=== PATIENT | female | born 1995 | race Caucasian/White ===

== ENCOUNTER 2019-07-31 18:04 | Emergency (ER) | payer OTHER ==
[2019-07-31] MEDS ORDERED: IBUPROFEN 800 MG TABLET PO STA (18:38)
[2019-07-31] MEDS ORDERED: ACETAMINOPHEN 325 MG TABLET PO STA (18:38)
[2019-07-31] MEDS ORDERED: SODIUM CHLORIDE 0.9% 1,000 ML IV ONE ×3 (19:19→19:24)
--- NOTE | 2019-07-31 19:24 | ED Physician Documentation ---
PD HPI FEVER - Stated complaint Stated Complaint: FEVER/NAUSEA/BARRIOS - Chief complaint Chief Complaint: Fever - History obtained from History obtained from: Patient, Family - History of Present Illness Timing - onset: Yesterday Timing duration: Days (2) Timing details: Gradual onset Pain level max: 8 Pain level now: 8 Associated symptoms: Chills, Sweats. No: Nasal congestion, Rhinorrhea, Sore throat, Dry cough, Chest pain, Dyspnea, Abdominal pain, Urinary symptoms Contributing factors: No: Sick contact, Travel, Immunocompromised, Unimmunized, COPD / asthma - Additional information Additional information: 23-year-old female states that she had a headache yesterday. She states that this was similar to her usual migraine headache. She states that she still has a mild headache today. She states that she took her temperature at home today and it was 104. Nothing makes it better or worse. No vomiting. Currently on her menses. She is not , breast-feeding or trying to become . No dysuria. No cough. Review of Systems Constitutional: reports: Fever GI: denies: Vomiting, Diarrhea : denies: Now EGA Skin: denies: Rash Neurologic: denies: Focal weakness, Numbness, Seizure, Confused PD PAST MEDICAL HISTORY - Past Medical History Past Medical History: No - Past Surgical History Past Surgical History: No - Allergies Allergies/Adverse Reactions: Allergies Allergy/AdvReac Type Severity Reaction Status Date / Time No Known Drug Allergies Allergy Verified 07/31/19 18:21 - Social History Does the pt smoke?: No Smoking Status: Never smoker Does the pt drink ETOH?: No Does the pt have substance abuse?: No - Immunizations Immunizations are current?: No - POLST Patient has POLST: No PD ED PE NORMAL - Vitals Vital signs reviewed: Yes - General General: Alert and oriented X 3, No acute distress, Well developed/nourished - HEENT HEENT: Ears normal, Moist mucous membranes, Pharynx benign - Neck Neck: Supple, no meningeal sign, No adenopathy - Cardiac Cardiac: Other (Tachycardic) - Respiratory Respiratory: No respiratory distress, Clear bilaterally - Abdomen Abdomen: Soft, Non tender, Non distended - Back Back: No CVA TTP, No spinal TTP - Derm Derm: Warm and dry, No rash - Extremities Extremities: No edema - Neuro Neuro: Alert and oriented X 3 - Psych Psych: Normal mood, Normal affect Results - Vitals Vitals: Vital Signs - 24 hr 07/31/19 07/31/19 07/31/19 18:21 18:26 19:07 Temperature 38.3 C H 39.6 C H 37.7 C H Heart Rate 129 H 129 H Respiratory 12 18 Rate Blood Pressure 113/82 H 113/81 H O2 Saturation 96 98 07/31/19 07/31/19 07/31/19 19:17 20:02 20:44 Temperature 38.2 C H Heart Rate 135 H 127 H 116 H Respiratory 18 20 16 Rate Blood Pressure 103/59 L 100/58 L 107/66 O2 Saturation 98 97 97 07/31/19 07/31/19 21:01 21:57 Temperature 37.8 C H 37 C Heart Rate 114 H 99 Respiratory 18 12 Rate Blood Pressure 107/66 111/67 O2 Saturation 96 97 Oxygen O2 Source Room air - Labs Labs: Laboratory Tests 07/31/19 07/31/19 07/31/19 18:30 19:30 19:30 WBC 4.7 L RBC 4.98 Hgb 14.3 Hct 43.0 MCV 86.3 MCH 28.7 MCHC 33.3 RDW 12.4 Plt Count 145 MPV 10.3 Neut # (Auto) 3.3 Lymph # (Auto) 0.7 L Whitley # (Auto) 0.6 Eos # (Auto) 0.0 Baso # (Auto) 0.0 Absolute Nucleated RBC 0.00 Nucleated RBC % 0.0 Sodium 137 Potassium 3.4 L Chloride 103 Carbon Dioxide 25 Anion Gap 9.0 BUN 14 Creatinine 0.7 Estimated GFR (MDRD) 104 Glucose 96 Calcium 8.5 Total Bilirubin 0.5 AST 19 ALT 16 Alkaline Phosphatase 59 Total Protein 7.2 Albumin 4.6 Globulin 2.6 Albumin/Globulin Ratio 1.8 Lipase 25 Urine Color Urine Clarity Urine pH Ur Specific [place] Urine Protein Urine Glucose (UA) Urine Ketones Urine Occult Blood Urine Nitrite Urine Bilirubin Urine Urobilinogen Ur Leukocyte Esterase Urine RBC Urine WBC Ur Squamous Epith Cells Urine Bacteria Ur Microscopic Review Urine Culture Comments Urine HCG, Qual Influenza A (Rapid) Negative Influenza B (Rapid) Negative 07/31/19 21:00 WBC RBC Hgb Hct MCV MCH MCHC RDW Plt Count MPV Neut # (Auto) Lymph # (Auto) [place] # (Auto) Eos # (Auto) Baso # (Auto) Absolute Nucleated RBC Nucleated RBC % Sodium Potassium Chloride Carbon Dioxide Anion Gap BUN Creatinine Estimated GFR (MDRD) Glucose Calcium Total Bilirubin AST ALT Alkaline Phosphatase Total Protein Albumin Globulin Albumin/Globulin Ratio Lipase Urine Color YELLOW Urine Clarity HAZY Urine pH 6.0 Ur Specific [place] 1.010 Urine Protein NEGATIVE Urine Glucose (UA) NEGATIVE Urine Ketones >=80 H Urine Occult Blood MODERATE H Urine Nitrite NEGATIVE Urine Bilirubin NEGATIVE Urine Urobilinogen 0.2 (NORMAL) Ur Leukocyte Esterase NEGATIVE Urine RBC 6-10 H Urine WBC 0-3 Ur Squamous Epith Cells NONE SEEN Urine Bacteria None Seen Ur Microscopic Review INDICATED Urine Culture Comments NOT INDICATED Urine HCG, Qual NEGATIVE Influenza A (Rapid) Influenza B (Rapid) - Rads (name of study) Chest x-ray Radiology: Prelim report reviewed, EMP read contemporaneously, See rad report (No acute disease) PD MEDICAL DECISION MAKING - ED course Complexity details: reviewed results, re-evaluated patient, considered differential, d/w patient ED course: 23-year-old female with what appears to be a flulike illness. Influenza swabs are negative. Chest x-ray is clear. No significant lab abnormalities. Feels better after IV fluids. Tolerating p.o. without difficulty. No evidence of sepsis. We will continue supportive care and follow-up with her doctor. Patient counseled regarding signs and symptoms for which I believe and urgent re-evaluation would be necessary. Patient with good understanding of and agreement to plan and is comfortable going home at this time This document was made in part using voice recognition software. While efforts are made to proofread this document, sound alike and grammatical errors may occur. No evidence of meningitis, encephalitis. Departure - Departure Disposition: 01 Home, Self Care Clinical Impression: Dehydration Fever Qualifiers: Fever type: unspecified Qualified Code(s): R50.9 - Fever, unspecified Condition: Good Instructions: ED Fever Unconf Cause, ED Flu Follow-Up: your,doctor in 1 week if not better [Other] Comments: Drink plenty of fluids and rest. Return if you worsen. Utilize Motrin or Tylenol as needed for fevers. Discharge Date/Time: 07/31/19 22:06
[2019-07-31 19:33] LABS: BASOPHILS % (AUTO) 0.2 %; EOSINOPHILS % (AUTO) 0.2 %; HGB - HEMOGLOBIN 14.3 g/dL (12.0-16.0); LYMPHOCYTES # (AUTO) 0.7 10^3/uL (1.5-3.5); LYMPHOCYTES % (AUTO) 15.8 %; MEAN CORPUSCULAR HEMOGLOBIN 28.7 pg (27.0-31.0); MEAN CORPUSCULAR HGB CONC 33.3 g/dL (32.0-36.0); MEAN CORPUSCULAR VOLUME 86.3 fL (81.0-99.0); MEAN PLATELET VOLUME 10.3 fL (7.9-10.8); MONOCYTES # (AUTO) 0.6 10^3/uL (0.0-1.0); NEUTROPHILS # (AUTO) 3.3 10^3/uL (1.5-6.6); NEUTROPHILS % (AUTO) 70.4 %; PLT - PLATELET COUNT 145 10^3/uL (130-450); RED BLOOD COUNT 4.98 10^6/uL (4.20-5.40); RED CELL DISTRIBUTION WIDTH 12.4 % (12.0-15.0); WHITE BLOOD COUNT 4.7 x10^3/uL (4.8-10.8)
[2019-07-31 19:47] LABS: ALBUMIN 4.6 g/dL (3.2-5.5); ALBUMIN/GLOBULIN RATIO 1.8 (1.0-2.2); BILIRUBIN,TOTAL 0.5 mg/dL (0.2-1.0); CALCIUM 8.5 mg/dL (8.5-10.3); CREATININE 0.7 mg/dL (0.4-1.0); TOTAL PROTEIN 7.2 g/dL (6.7-8.2)
--- NOTE | 2019-07-31 20:28 | XRAY Report ---
Reason: fever Procedure Date: 07/31/2019 Accession Number: [id number] / [id number] Procedure: XR - Chest 1 View X-Ray CPT Code: 60918 Final Report FULL RESULT: EXAM: CHEST RADIOGRAPHY EXAM DATE: 07/31/2019 07:54 PM. CLINICAL HISTORY: Fever. COMPARISON: None. TECHNIQUE: 1 view. FINDINGS: Lungs/Pleura: No dense consolidation. No large effusion or pneumothorax. No pulmonary edema. Mediastinum: Heart and mediastinal contours are unremarkable. Other: None. IMPRESSION: No acute radiographic pulmonary abnormalities. RADIA
[2019-07-31 21:12] LABS: BILIRUBIN,URINE NEGATIVE (NEGATIVE); GLUCOSE, URINE (UA) NEGATIVE (NEGATIVE); KETONES,URINE (UA) >=80 mg/dL (NEGATIVE); LEUKOCYTE ESTERASE, URINE NEGATIVE (NEGATIVE); NITRITE,URINE NEGATIVE (NEGATIVE); OCCULT BLOOD,URINE MODERATE (NEGATIVE); PROTEIN,URINE NEGATIVE (NEGATIVE); UROBILINOGEN,URINE 0.2 (NORMAL) E.U./dL (NORMAL)
[2019-07-31 21:13] LABS: CLARITY,URINE HAZY (CLEAR); HCG UR QUAL NEGATIVE
[2019-07-31 21:25] LABS: BACTERIA,URINE None Seen /HPF (None Seen); SQUAMOUS EPITHELIAL CELL,UR NONE SEEN (<= Few)
[2019-07-31 21:58] VITALS: BP 111/67
== END 2019-07-31 22:06 | disposition home or self-care (01) ==
LOC: ED 18:04
DX: E86.0 Dehydration (principal); R50.9 Fever, unspecified; R51 Headache
CPT/HCPCS: 36415; 71045; 80053; 81001; 81025; 83690; 85025; 87275; 87276; 96360; 96361; 99284; A9270; 81003; 87086

== ENCOUNTER 2023-10-06 01:21 | Inpatient (IN) | payer MEDICAID, OTHER ==
[2023-10-06] MEDS ORDERED: TERBUTALINE 1 MG/ML VIAL SUBQ PRN (01:42)
[2023-10-06] MEDS ORDERED: miSOPROStoL 200 MCG TABLET BC PRN (01:42)
[2023-10-06] MEDS ORDERED: lidocaine 1% 20 ML MDV ID PRN (01:42)
[2023-10-06] MEDS ORDERED: NIFEdipine 10 MG CAPSULE PO PRN (01:42)
[2023-10-06] MEDS ORDERED: CARBOPROST TROMETHAMINE 250 MCG/ML AMP IM PRN (01:42)
[2023-10-06] MEDS ORDERED: hydrALAZINE INJ 20 MG/ML VIAL IVP PRN ×2 (01:42)
[2023-10-06] MEDS ORDERED: METHYLERGONOVINE 0.2 MG/ML VIAL IM PRN (01:42)
[2023-10-06] MEDS ORDERED: miSOPROStoL 200 MCG TABLET PR PRN (01:42)
[2023-10-06] MEDS ORDERED: TRANEXAMIC ACID IN NACL 1,000 MG/100 ML BAG IV PRN (01:42)
[2023-10-06] MEDS ORDERED: SODIUM CHLORIDE FLUSH 0.9% 10 ML SYRINGE IVP PRN (01:42)
[2023-10-06] MEDS ORDERED: LABETALOL 20 MG/4 ML SYRINGE IVP PRN ×3 (01:42)
[2023-10-06] MEDS ORDERED: fentaNYL 100 MCG/2 ML VIAL IVP PRN (01:42)
[2023-10-06] MEDS ORDERED: OXYTOCIN 10 UNIT/ML VIAL IM PRN (01:42)
--- NOTE | 2023-10-06 01:48 | HISTORY & PHYSICAL EXAMINATION ---
Admit History - Visit Reason Visit Reason: Contractions - : 3 Parity: 2 Risk/History: positive: Other (4th degree midline laceration, VAVD) Smoking Status: Never smoker - Other Maternal History Other Maternal History: HPI: 27-year-old -0-0-2 at 39 weeks 3 days gestation presenting in active labor. She gets her care from [facility]. She has been cheyanne for days, but approximately 1130 (2 hours prior to arrival) had a noticeable change in the intensity of her contractions. Does not believe she has had membrane rupture.. She has good movement. No BARRIOS/BV or RUQP. No vaginal bleeding. Denies nausea and vomiting. Denies urinary urgency or dysuria. All other symptoms reviewed and were negative except per HPI. Course Records pending. Per patient, no significant abnormalities this . PMH Denies pertinent medical history PSH [place] teeth extraction OB History -0-0-2 1. Female, 7 pounds, 10-ounces. VAVD, Fourth degree midline laceration 2. Female, 8 pounds 3 ounces. Induction of labor, second-degree midline laceration SH Denies tobacco,, drugs Family History Denies pertinent family history Allergies No known drug allergies Medications vitamins Physical exam: General: Alert, oriented, no acute distress Head: Normal cephalic atraumatic Eyes: PERRLA, extraocular motions intact. Respiratory: Normal rate of respiration. No accessory muscle use, normal respiratory effort. Cardiovascular: Regular rate and rhythm Abdomen: Gravid, nontender, nondistended Extremities: Normal range of motion Neuro: Oriented x3. Normal movements Psych: Appropriate mood and affect. Normal judgment and insight SVE: 6/80/-1 FHT: 125 bpm baseline, moderate variability, accelerations present, no decelerations. [place]: 2 to 4 minutes US: Cephalic Plan 27-year-old -0-0-2 at 39 weeks 3 days gestation admitted for term labor 1. Term labor -Admit to L&D, admit labs, epidural at patient's request, anticipate AROM, anticipate . 2. 39 weeks gestation -Records requested from [facility] 3. History of fourth degree midline laceration -Care with delivery. Counselled on primary and patient declines. Subsequent vaginal delivery with second-degree tear. 4. History of vacuum-assisted vaginal delivery 5.GBS unknown -Per patient negative -GBS positive in previous , so will start GBS prophylaxis. Meds/Allgy - Home Medications Home Medications: Ambulatory Orders Medication Instructions Recorded Confirmed Pnv No.159/Iron/Folic Acid [Eql 1 each PO 10/06/23 Vitamin Tablet] - Allergies Allergies/Adverse Reactions: Allergies Allergy/AdvReac Type Severity Reaction Status Date / Time No Known Drug Allergies Allergy Verified 07/31/19 18:21 Plan for Labor - Plan For Labor I expect patient to be DC'd or transferred within 96 hours.: Yes
[2023-10-06] MEDS ORDERED: ROPIVACAINE 0.2% 200 MG/100 ML BAG EP ONE (01:56)
[2023-10-06] MEDS: LACTATED RINGERS 1,000 ML IV PRN (02:00)
[2023-10-06] MEDS ORDERED: NALBUPHINE 10 MG/ML AMP IVP PRN (02:38)
[2023-10-06] MEDS ORDERED: ROPIVACAINE 0.2% 200 MG/100 ML BAG EP PRN (02:38)
[2023-10-06] MEDS ORDERED: METOCLOPRAMIDE 10 MG/2 ML VIAL IVP PRN (02:38)
[2023-10-06] MEDS ORDERED: NALOXONE 0.4 MG/ML VIAL IVP PRN (02:38)
[2023-10-06] MEDS ORDERED: diphenhydrAMINE INJ 50 MG/ML VIAL IVP PRN (02:38)
[2023-10-06] MEDS ORDERED: ONDANSETRON 4 MG/2 ML VIAL IVP PRN ×2 (02:38→06:25)
[2023-10-06] MEDS ORDERED: ePHEDrine 50 MG/ML VIAL IVP PRN (02:38)
--- NOTE | 2023-10-06 02:38 | ANESTHESIA ---
Pre-Anesthesia VS, & Labs - Diagnosis term labor, IUP - Procedure epidural for Vital Signs: Temp Pulse Resp BP Pulse Ox O2 Flow Rate 37.1 C 99 18 122/58 L 10/06/23 01:36 10/06/23 01:36 10/06/23 01:36 10/06/23 01:36 Height: 5 ft 5 in Weight (kg): 72.575 kg Body Mass Index: 26.6 BMI Classification: Overweight - NPO Last Fluid Intake: t/o day - Is Patient ?: Yes - Lab Results Lab results reviewed: Yes Home Medications and Allergies Home Medications: Ambulatory Orders Pnv No.159/Iron/Folic Acid [Eql Vitamin Tablet] 1 each PO 10/06/23 Active Medications Carboprost Tromethamine (Carboprost Tromethamine 250 Mcg/Ml Amp) 250 mcg IM .ONCE PRN PRN Reason: Hemorrhage Fentanyl (Fentanyl 100 Mcg/2 Ml Vial) 50 mcg IVP Q1H PRN PRN Reason: Severe Pain (score 7-10) Hydralazine HCl (Hydralazine Inj 20 Mg/Ml Vial) 10 mg IVP .ONCE PRN; Protocol PRN Reason: SBP> or= 160 OR DBP> or= 110 Hydralazine HCl (Hydralazine Inj 20 Mg/Ml Vial) 5 - 10 mg IVP Q20M PRN; Protocol PRN Reason: SBP> or= 160 OR DBP> or= 110 Oxytocin/Sodium Chloride (Pitocin/Sodium Chloride) 500 mls @ 999 mls/hr IV PRN PRN; Protocol PRN Reason: POST- HEMORR PREVENTION Tranexamic Acid (Tranexamic 1,000 Mg/100ml-Nacl) 1,000 mg in 100 mls @ 600 mls/hr IV Q30M PRN PRN Reason: EBL >1200mL and within 3hr Lactated Ringer's (Lr) 1,000 mls @ 125 mls/hr IV .Q8H GAVIN Lactated Ringer's (Lr) 1,000 mls @ 999 mls/hr IV PRN PRN PRN Reason: PER PHYSICIAN ORDER Ampicillin Sodium 2 gm/ Sodium (Chloride) 100 mls @ 100 mls/hr IV ONCE ONE Stop: 10/06/23 02:58 Ampicillin Sodium 1 gm/ Sodium (Chloride) 100 mls @ 200 mls/hr IV Q4H GAVIN Labetalol HCl (Labetalol 20 Mg/4 Ml Syringe) 20 mg IVP .ONCE PRN; Protocol PRN Reason: SBP> or= 160 OR DBP> or= 110 Labetalol HCl (Labetalol 20 Mg/4 Ml Syringe) 20 - 80 mg IVP Q10M PRN; Protocol PRN Reason: SBP> or= 160 OR DBP> or= 110 Labetalol HCl (Labetalol 20 Mg/4 Ml Syringe) 20 - 40 mg IVP Q10M PRN; Protocol PRN Reason: SBP> or= 160 OR DBP> or= 110 Lidocaine HCl (Lidocaine 1% 20 Ml Mdv) 20 ml ID .ONCE PRN PRN Reason: PERINEAL REPAIR Stop: 10/09/23 01:42 Methylergonovine Maleate (Methylergonovine 0.2 Mg/Ml Vial) 0.2 mg IM .ONCE PRN PRN Reason: Hemorrhage Misoprostol (Misoprostol 200 Mcg Tablet) 600 mcg BC .ONCE PRN PRN Reason: Hemorrhage Misoprostol (Misoprostol 200 Mcg Tablet) [address] .ONCE PRN PRN Reason: Hemorrhage Nifedipine (Nifedipine 10 Mg Capsule) 10 - 20 mg PO Q20M PRN; Protocol PRN Reason: SBP> or= 160 OR DBP> or= 110 Oxytocin (Oxytocin 10 Unit/Ml Vial) 10 unit IM .ONCE PRN PRN Reason: Step One if no IV access. Sodium Chloride (Sodium Chloride Flush 0.9% 10 Ml Syringe) 10 ml IVP Q8H GAVIN Sodium Chloride (Sodium Chloride Flush 0.9% 10 Ml Syringe) 10 ml IVP PRN PRN PRN Reason: NEEDED PER PROVIDER ORDERS Terbutaline Sulfate (Terbutaline 1 Mg/Ml Vial) 0.25 mg SUBQ .ONCE PRN PRN Reason: Tachystole Pnv No.159/Iron/Folic Acid [Eql Vitamin Tablet] 1 each PO 10/06/23 Allergies/Adverse Reactions: Allergies Allergy/AdvReac Type Severity Reaction Status Date / Time No Known Drug Allergies Allergy Verified 07/31/19 18:21 Anes History & Medical History - Anesthetic History Anesthesia Complications: reports: No previous complications Family history of Anesthesia Complications: Denies Family history of Malignant Hyperthermia: Denies - Medical History Smoking Status: Never smoker - Surgical History Other Past Surgical History: wisdom teeth extraction - Obstetrical History : 3 Parity: 2 Events: reports: Other (4th degree midline laceration, VAVD) Exam General: Alert, Oriented x3, Cooperative Dental: WNL Neck Mobility: Normal Respiratory: No respiratory distress Cardiovascular: Regular rate Neurological: Normal speech Mental/Cognitive Status: Alert/Oriented X3, Normal for patient Cognitive Status: Within normal limits Plan Anesthesia Type: Epidural Consent for Procedure(s) Verified and Reviewed: Yes Code Status: Attempt Resuscitation ASA classification: 2-Mild systemic disease Is this case an emergency?: No
[2023-10-06] MEDS: AMPICILLIN 2 GM in SODIUM CHLORIDE 0.9% MINIBAG 100 ML IV ONE (02:56)
[2023-10-06 03:29] LABS: BASOPHILS % (AUTO) 0.3 %; EOSINOPHILS # (AUTO) 0.1 10^3/uL (0.0-0.7); EOSINOPHILS % (AUTO) 1.3 %; HCT - HEMATOCRIT 35.5 % (37.0-47.0); HGB - HEMOGLOBIN 11.1 g/dL (12.0-16.0); LYMPHOCYTES # (AUTO) 2.3 10^3/uL (1.5-3.5); LYMPHOCYTES % (AUTO) 21.3 %; MEAN CORPUSCULAR HGB CONC 31.3 g/dL (32.0-36.0); MEAN PLATELET VOLUME 11.4 fL (7.9-10.8); MONOCYTES # (AUTO) 0.7 10^3/uL (0.0-1.0); MONOCYTES % (AUTO) 6.8 %; NEUTROPHILS # (AUTO) 7.4 10^3/uL (1.5-6.6); PLT - PLATELET COUNT 158 10^3/uL (130-450); RED BLOOD COUNT 4.44 10^6/uL (4.20-5.40); RED CELL DISTRIBUTION WIDTH 16.7 % (12.0-15.0); WHITE BLOOD COUNT 10.8 x10^3/uL (4.8-10.8)
--- NOTE | 2023-10-06 03:45 | PROVIDER PROGRESS NOTE ---
Labor Progress Note - Uterine Monitoring Uterine Monitoring Mode: positive: External toco Contraction Frequency (min/apart): 2-6 - Monitoring Monitor Mode: positive: External ultrasound Heart Rate Baseline: 125 Heart Rate Variability: positive: Moderate (6-25 bmp) Accelerations: positive: Present, 15x15 Decelerations: positive: None Strip Review: positive: Category I - Vaginal Exam Dilation (in cm): 6 Effacement (%): 80 Station: -1 - Labor Progress Note Labor Progress Note/Additional Text: Discussed amniotomy and patient consented. Amniotomy was performed with a small amount of clear fluid. Relatively unchanged. Contractions still regular. Currently comfortable after epidural placement. Had brief period of decreased blood pressure, but mom and baby tolerated well and is currently normotensive. Continue expectant management at this time. Received first dose of ampicillin which was noted to be positive on her records. Also received records noting EFW of 3358 g on 09/08 showing an EFW of 98%.
[2023-10-06] MEDS: LACTATED RINGERS 500 ML IV ONE (04:06)
[2023-10-06] MEDS: LACTATED RINGERS 1,000 ML IV SCH ×2 (04:20→07:27)
[2023-10-06] MEDS: SODIUM CHLORIDE FLUSH 0.9% 10 ML SYRINGE IVP SCH (04:21)
[2023-10-06] MEDS ORDERED: AMPICILLIN 1 GM in SODIUM CHLORIDE 0.9% MINIBAG 100 ML IV SCH (06:00)
[2023-10-06] MEDS: OXYTOCIN/SODIUM CHLORIDE 500 ML IV PRN (06:10)
--- NOTE | 2023-10-06 06:24 | DELIVERY NOTE ---
Delivery Note - Labor Labor: positive: Augmented by ARM - Infant Delivery Method Delivery Method: positive: Spontaneous vaginal delivery - Presentation Presentation: positive: Vertex - Nuchal Cord Nuchal Cord: positive: None - Anesthetic Anesthetic Type: - Amniotic Fluid Description Amniotic Fluid Description: positive: Clear - Laceration Laceration: positive: 2nd degree - Suture Suture Size: positive: 3-0 - Delivery Outcome Delivery Outcome: positive: Livebirth - [place]: positive: Placed in direct skin contact with mother, Suctioned, [place] used [place] sex: positive: Male - Cord Cord: positive: 3 vessels - Placenta Placenta: positive: Intact - Estimated Blood Loss Estimated Blood Loss (in cc): 350 - Post Delivery Events Post Delivery Events: positive: No post delivery events - Delivery Comments (Free Text/Narrative) Delivery Comments (Free Text/Narrative): Preoperative Diagnoses 39 weeks gestation Term labor History of 4th degree Status post [place] vaginal delivery Delivery of live rober[place] midline laceration GBS positive Postoperative Diagnoses Same Patient presented in term labor at 6 cm. She received an epidural for pain control. Amniotomy was performed with a small amount of clear fluid. She had a category 1 tracing throughout. At complete, she was placed in the dorsolithotomy position and pushed and several different positions with the delivery team. Delivery Summary: Upon maternal pushing the head was delivered atraumatically followed by the anterior shoulder, posterior shoulder, then the remainder of the infant's body. A male was delivered with APGARS of 8 at 1 minute and 9 at 5 minutes. The was placed on its mother's chest . After the cord finished pulsating, the umbilical cord was clamped times two and cut. The placenta delivered intact with three vessel cord. Placenta was not sent to pathology. Thirty units of Pitocin were added to the IV fluid and allowed to run freely. Uterine massage was performed until uterus was deemed firm. Upon inspection, the patient had a second-degree midline laceration in the area of her previous scar tissue. This was repaired with a running suture of 3-0 Vicryl. She also had external skin tearing around the clitoris bilaterally, but these were hemostatic and from stretching. Upon re-inspection the patient was hemostatic. Uterus again massaged and found to be firm. Needle and sponge counts were correct. Patient was stable and allowed to recover in L&D room. was stable and remained in room with mother. weight is pending at this time.
[2023-10-06] MEDS ORDERED: CALCIUM CARBONATE CHEW 500 MG TABLET PO PRN (06:25)
[2023-10-06] MEDS ORDERED: DOCUSATE SODIUM 100 MG CAPSULE PO PRN (06:25)
[2023-10-06] MEDS ORDERED: SIMETHICONE CHEW 80 MG TABLET PO PRN (06:25)
[2023-10-06] MEDS: ACETAMINOPHEN 500 MG TABLET PO SCH (08:20)
[2023-10-06] MEDS: IBUPROFEN 600 MG TABLET PO SCH (08:21)
[2023-10-06 14:03] VITALS: BP 108/69; O2SAT 98
--- NOTE | 2023-10-06 18:41 | Labor Flowsheet ---
Labor Flowsheet Datetime Report Generated by CPN: 10/06/2023 18:40 Datetime: 10/06/2023 13:57 VITAL SIGNS NBP Sys/Wanda/Mean (mmHg): 108 : 69 : 77 Pulse: 102 Datetime: 10/06/2023 06:14 SpO2 (%): 99 Datetime: 10/06/2023 06:10 Stage of : Recovery Datetime: 10/06/2023 06:09 LaborFlag: Labor Datetime: 10/06/2023 05:33 I/O Interventions: [place] Discontinued Datetime: 10/06/2023 05:28 Pushing Progress: Descent with Pushing; Presenting Part Visible; Pushing Effectively with Contracti ons Datetime: 10/06/2023 05:12 STAGE 2 Pushing Position: Pushing with Contractions; Pushing Lithotomy Datetime: 10/06/2023 05:07 Temperature (C): 36.8 Datetime: 10/06/2023 04:57 VAGINAL EXAM Dilatation (cm): 10.0 Effacement (%): 100 Station: 1 Exam by: Nae Hunt, RN Datetime: 10/06/2023 04:30 UTERINE ACTIVITY Monitor Mode: External Frequency (min): 3-4 Quality: Strong Pattern: Normal: <= 5 Contractions in 10 Minutes Resting Tone (Palpate): Relaxed ASSESSMENT A Monitor Mode: External US FHR Baseline Rate : 125 Variability: Moderate 6-25 bpm Accelerations: 15X15 Decelerations: None Category: Category I Datetime: 10/06/2023 04:00 Duration (sec): 30-90 Datetime: 10/06/2023 03:38 Membrane Status: Ruptured Membranes Ruptured Date/Time: 10/06/2023 03:38 Membranes Rupture Method: Artificial Amniotic Fluid Color: Clear Amniotic Fluid Amount: Small Amniotic Fluid Odor: Normal Datetime: 10/06/2023 03:35 COMMUNICATION Communication: Provider at Bedside Datetime: 10/06/2023 03:19 Patient Position/Activity: Left Tilt Datetime: 10/06/2023 03:00 Monitor Interventions for UA: [place] Adjusted FHR Baseline Changes: No Baseline Change Datetime: 10/06/2023 02:56 MEDICATIONS Antibiotics: Ampicillin IV 2 Gm Datetime: 10/06/2023 02:30 Comments: int. tracing, tracing MHR @ times d/t pt positioning Datetime: 10/06/2023 02:21 Epidural Procedure Other: Pump Started Datetime: 10/06/2023 02:17 Epidural Procedure: Completed Datetime: 10/06/2023 02:10 Anesthesia Comments: start Datetime: 10/06/2023 02:05 ANESTHESIA Epidural Positioning: Sitting Datetime: 10/06/2023 02:00 PATIENT CARE Oxygen Method: Room Air Datetime: 10/06/2023 01:26 Communication Comments: Pt presents to unit with SO at side. Care provided in at other f acility medical record request sent. Pt states third with no complications in this pregna ncy. History of hemhorrage and 4th degree tear with first delivery use of vacum.
== END 2023-10-06 17:45 | disposition home or self-care (01) | DRG 807 ==
LOC: WFO 01:21 → FBP 01:26 → WFO 01:41 → FBP 01:42
PROVIDERS: ADMIT Obstetrics & Gynecology; ATTEND Obstetrics & Gynecology
PROC: 10E0XZZ Delivery of Products of Conception, External Approach (ICD-10-PCS; principal; 2023-10-06)
PROC: 0KQM0ZZ Repair Perineum Muscle, Open Approach (ICD-10-PCS; 2023-10-06)
PROC: 10907ZC Drainage of Amniotic Fluid, Therapeutic from Products of Conception, Via Natural or Artificial Opening (ICD-10-PCS; 2023-10-06)
DX: O70.1 Second degree perineal laceration during delivery (principal); Z37.0 Single live birth; O99.824 Streptococcus B carrier state complicating childbirth; Z3A.39 39 weeks gestation of pregnancy
CPT/HCPCS: 59409; 85025; 86850; 86900; 86901; A9270; J7120